=== PATIENT | male | born 1980 | race Caucasian/White ===

== ENCOUNTER 2017-06-06 13:03 | Emergency (ER) | payer BC ==
[2017-06-06 13:09] VITALS: TEMP 98.4
--- NOTE | 2017-06-06 13:28 | EDPHY ---
H & P Stated Complaint: SWELLING/PAIN L ANKLE/NOT SURE OF INJ/HURT GOLFING YESTERDAY Time Seen by Provider: 06/06/17 13:28 - Personal History Current Tetanus/Diphtheria Vaccine: Yes - Medical/Surgical History Hx Asthma: No Hx Chronic Respiratory Disease: No Hx Diabetes: No Hx Cardiac Disease: No Hx Renal Disease: No Hx Cirrhosis: No Hx Alcoholism: No Hx HIV/AIDS: No Hx Splenectomy or Spleen Trauma: No Other PMH: APPY/SLEEP APNEA - Social History Smoking Status: Never smoked Constitutional: Initial Vital Signs Temperature (C) 36.9 C 06/06/17 13:06 Heart Rate 91 06/06/17 13:06 Respiratory Rate 18 06/06/17 13:06 Blood Pressure 156/84 H 06/06/17 13:06 O2 Sat (%) 96 06/06/17 13:06 O2 Delivery Mode Room Air Allergies/Adverse Reactions: No Known Allergies Allergy (Unverified 06/06/17 13:06) Home Medications: Medication Instructions Recorded Cephalexin [Keflex (RX)] 500 mg PO TID #30 cap 06/06/17 HYDROcodone/APAP 10/325 [[place] 1 - 2 each PO Q4-6PRN PRN #20 tab 06/06/17 10/325] Ondansetron Odt [Zofran Odt 4 mg 4 mg PO Q4 PRN #10 tab 06/06/17 (RX)] Medical Decision Making - Diagnostics Imaging Results: Imaging Impressions Ankle X-Ray 06/06/17 13:09 Impression: 1. No acute osseous at about is seen left ankle. 2. Soft tissue swelling noted. Lower Extremity MRI 06/06/17 13:43 Impression: 1. Moderate tendinitis associated with the flexor hallucis longus tendon along the medial ankle joint with heterogeneous signal near the insertion compatible with tendinitis and possible partial tear. With overlying edema of the subcutaneous tissues, consider infectious etiology as well. 2. Mild fluid around the flexor digitorum longus tendon at the ankle joint level. Findings discussed with Robbie Kemp MD at 16:03 hour, 06/06/2017. ED Course/Re-evaluation: CHIEF COMPLAINT: Left ankle pain HISTORY OF PRESENT ILLNESS: 2 weeks ago this patient developed nontraumatic left ankle pain. He denies it being very red or erythematous but it was somewhat red or erythematous. He also denies any systemic illness like fevers chills nausea vomiting. He did say he had a short period of fever last week and for about a day but the ankle pain started a week before that. He thought his ankle was getting somewhat better he is traveling here from [place] but he is unable to ambulate on the ankle. Once again he denies any trauma. Patient denies a history of gout REVIEW OF SYSTEMS: A 10 point review of systems was performed and is negative with the exception of the elements mentioned in the history of present illness. PHYSICAL EXAM: HR, BP, O2 Sat, RR. Temp noted General Appearance: Alert, well hydrated, appropriate, and non-toxic appearing. Head: Atraumatic without scalp tenderness or obvious injury Eyes: Pupils equal, round, reactive to light and accommodation, EOMI, no trauma , no injection. Ears: Clear bilaterally, no perforation, normal landmarks Nose: Atraumatic, no rhinorrhea, clear. Throat: There is no erythema or exudates, no lesions, normal tonsils, mucus membranes moist. Neck: Supple, 2+ carotid upstroke, nontender, no lymphadenopathy. Respiratory: No retractions, no distress, no wheezes, and no accessory muscle use. Lungs are clear to auscultation bilaterally. Cardiovascular: Regular rate and rhythm, no murmurs, rubs, or gallops. Bilateral carotid, radial, dorsalis pedis, and posterior tibial pulses intact. Good capillary refill all extremities. Gastrointestinal: Abdomen is soft, nontender, non-distended, no masses, no rebound, no guarding, no peritoneal signs. Musculoskeletal: Left ankle is swollen. There is mild erythema. Patient has significant pain on any range of motion in any direction and he can barely put pressure on it due to pain. Normal active ROM of all extremities, atraumatic. Neurological: Alert, appropriate, and interactive. The patient has normal DTRs and non-focal cranial nerves, motor, sensory, and cerebellar exam. Skin: No rashes, good turgor, no nodules on palpation. Past medical history: Patient denies Past surgical history: Noncontributory Family history: Noncontributory no history of gout Social history: Single employed, visiting from out of state, does not abuse tobacco drugs or alcohol DIAGNOSTICS/PROCEDURES/CRITICAL CARE TIME: Study: three views left ankle Indication: nontraumatic ankle pain Results: After viewing the images myself on the PACS system. My interpretation of the images is: no acute process. The radiologist interpretation is pending at the time of this dictation. DIFFERENTIAL DIAGNOSIS: Includes but is not limited to: Sprain, strain, intra -articular infection, gout, arthritis, pseudogout, traumatic injury MEDICAL DECISION MAKING: This patient has a excruciatingly tender ankle with any movement or weight-bearing however I cannot seem to find a reason for it. There is an effusion but is not tremendous. There is very minimal erythema. Plain x-rays are normal and I will perform an MRI. Most importantly would like to rule out any intra-articular type infectious process but with lack of any systemic illness and lack of significant erythema after 2 weeks of pain I doubt that to be the case. 1603: MRI results conveyed to me by Dr. George, radiology. He reports swelling of the FHL and extensor tendons but no fluid in joint space. He believes an overlying cellulitis may be causing the inflammation. Plan to consult with orthopedic surgeon Dr. Babcock. 1605: Consulted with Dr. Babcock, orthopedics. He does not recommend tapping the ankle as their is no effusion. He recommends antibiotics, splinting, and will see the patient in his office. The patient will be placed in silvio boot. 1623: Reassessed patient. Discussed results of MRI scan. He understands and is comfortable with the plan. Departure - Departure Disposition: Home, Routine, Self-Care Clinical Impression: Ankle cellulitis Condition: Good Instructions: Hydrocodone/Acetaminophen (By mouth), Cellulitis (ED) Additional Instructions: There is no evidence today of an intraarticular infection of your ankle but is impossible to fully rule this out. Take Keflex as prescribed. Take the pain medication as prescribed. Follow up with an orthopedic surgeon when you return home. If you need a doctor here you have been given the telephone number of Dr. Babcock, orthopedics. Wear the boot until you have followed up. Return for any serious worsening of condition. Referrals: CRYSTAL ALVAREZ [Other] - As per Instructions Declan Babcock MD [Medical Doctor] - As per Instructions Prescriptions: Cephalexin [Keflex (RX)] 500 mg PO TID #30 cap HYDROcodone/APAP 10/325 [[place] 10/325] 1 - 2 each PO Q4-6PRN PRN #20 tab PRN Reason: Pain, Moderate Ondansetron Odt [Zofran Odt 4 mg (RX)] 4 mg PO Q4 PRN #10 tab PRN Reason: Nausea/Vomiting, Use 1st
[2017-06-06 15:50] VITALS: BP 135/86; PULSE 90; RESP 17; O2SAT 93
[2017-06-06] MEDS ORDERED: HYDROCOD/APAP 5/325 PREPACK#6 BTL TAKEHOME ONE (16:08)
[2017-06-06] MEDS ORDERED: CEPHALEXIN 500 MG CAP PO ONE (16:08)
== END 2017-06-06 16:32 | disposition home or self-care (01) ==
DX: L03.116 Cellulitis of left lower limb (principal)